=== PATIENT | female | born 1980 | race Caucasian/White ===

== ENCOUNTER 2017-02-16 12:08 | Emergency (ER) | payer OTHER ==
[~2017-02-16] VITALS: Ht 167.6 cm; Wt 72.6 kg
--- NOTE | ~2017-02-16 | CR93 ---
[facility] A Service of [facility] & [facility] RADIOLOGY TEXT RESULTS PATIENT: GAYLE IVEY LOCATION: [facility] : 76 UNIT #: [id number] AGE: [address]: Heather Monetro APRN SEX: F ORDER DR: [id number] [facility] [address] [place], [place] [address] [id number] E MR#: [id number] Acc #: [id number] NAME: GAYLE IVEY. : 1980 SEX: F STUDY DATE/TIME: 02/16/2017 14:01 UNIT: [facility] ROOM: STUDY DESCRIPTION: CR Elbow Min 3 Views Lt Attending Physician: Heather Montero A.P.R.N. Ordering Physician: Ed Marvin Forman M.D. Primary Care Physician: No Primary Care Physician MEDICAL IMAGING REPORT This report is preliminary unless electronic signature is present EXAM Left elbow, 02/16 at 14:01. INDICATIONS Posterior elbow pain after a fall at home today. FINDINGS Four views of the left elbow were obtained. No fracture or malalignment is seen. There is no joint effusion. The soft tissues are unremarkable. IMPRESSION Negative elbow. Dictated by... Gerson Myles Jr., M.D. THIS IS AN ELECTRONICALLY VERIFIED REPORT Gerson Myles Jr., M.D. at 02/17/2017 8:37 AM KOKI/tawny TD: 02/16/2017 17:38 JOB #: [id number] MEDICAL IMAGING REPORT Page 1 of 1 COPY
--- NOTE | ~2017-02-16 | CR58 ---
[facility] A Service [facility] RADIOLOGY TEXT RESULTS PATIENT: GAYLE IVEY LOCATION: [facility] : 76 UNIT #: [id number] AGE: [address]: Heather Montero APRN SEX: F ORDER DR: [id number] [facility] [address] [place], [place] [address] [id number] E MR#: [id number] Acc #: [id number] NAME: GAYLE IVEY. : 1980 SEX: F STUDY DATE/TIME: 02/16/2017 13:44 UNIT: [facility] ROOM: STUDY DESCRIPTION: CR Cervical Spine 2 or 3 Views Attending Physician: Heather Montero A.P.R.N. Ordering Physician: Ed Doctor [id number] [facility] Primary Care Physician: No Primary Care Physician MEDICAL IMAGING REPORT This report is preliminary unless electronic signature is present EXAM Cervical spine, 02/16/17 COMPARISON STUDIES None. HISTORY Fall at home today with neck pain. FINDINGS AP and lateral projections of the cervical spine show satisfactory preservation of the cervical lordosis. The cervical soft tissues are normal. All anterior and posterior elements in the cervical area are anatomically normal without identifiable fracture, dislocation, malignant lytic or sclerotic change, or arthritis. There is no congenital defect apparent. IMPRESSION Normal cervical spine. Dictated by... Gee Motta M.D. THIS IS AN ELECTRONICALLY VERIFIED REPORT Gee Motta M.D. at 02/17/2017 10:45 AM CONNER/lisa TD: 02/16/2017 17:24 JOB #: [id number] [facility] A [facility] RADIOLOGY TEXT RESULTS PATIENT: GAYLE IVEY LOCATION: [facility] : 76 UNIT #: [id number] AGE: [address]: Heather Montero APRN SEX: F ORDER DR: MEDICAL IMAGING REPORT Page 1 of 1 COPY
--- NOTE | ~2017-02-16 | CR141 ---
[facility] A Service of [facility] RADIOLOGY TEXT RESULTS PATIENT: GAYLE IVEY LOCATION: [facility] : 78 UNIT #: [id number] AGE: [address]: Heather Montero APRN SEX: F ORDER DR: [id number] [facility] [address] [place], [place] [address] [id number] E MR#: [id number] Acc #: [id number] NAME: GAYLE IVEY : 1980 SEX: F STUDY DATE/TIME: 02/16/2017 14:00 UNIT: [facility] ROOM: STUDY DESCRIPTION: CR Hand Min 3 Views Lt Attending Physician: Heather Montero A.P.R.N. Ordering Physician: Ed Doctor [id number] [facility] Primary Care Physician: No Primary Care Physician MEDICAL IMAGING REPORT This report is preliminary unless electronic signature is present EXAM Left hand, 02/16/17 HISTORY Left hand pain today after falling. FINDINGS AP, lateral, and oblique projections of the hand show good mineralization with normal carpal, metacarpal, and phalangeal anatomy without indication of fracture, dislocation, or soft tissue radiopaque foreign body. IMPRESSION Normal hand. Dictated by... Gee Motta M.D. THIS IS AN ELECTRONICALLY VERIFIED REPORT Gee Motta M.D. at 02/17/2017 10:46 AM CONNER/lisa TD: 02/16/2017 17:27 JOB #: [id number] MEDICAL IMAGING REPORT Page 1 of 1 COPY
--- NOTE | ~2017-02-16 | CR150 ---
[facility] A Service of [facility] & [facility] RADIOLOGY TEXT RESULTS PATIENT: GAYLE IVEY LOCATION: [facility] : 76 UNIT #: [id number] AGE: [address]: Heather Montero APRN SEX: F ORDER DR: [id number] [facility] [address] [place], [place] [address] [id number] E MR#: [id number] Acc #: [id number] NAME: GAYLE IVEY : 1980 SEX: F STUDY DATE/TIME: 02/16/2017 14:07 UNIT: [facility] ROOM: STUDY DESCRIPTION: CR Hip Min 2 Views Lt Attending Physician: Heather Montero A.P.R.N. Ordering Physician: Ed Marvin Forman M.D. Primary Care Physician: No Primary Care Physician MEDICAL IMAGING REPORT This report is preliminary unless electronic signature is present EXAM Left hip and pelvis, 02/16 at 1407 hours. INDICATIONS Hip pain after fall at home today. FINDINGS AP pelvis was obtained in addition to a frog-leg left hip. No fracture or malalignment is seen. The femoral heads are normal without evidence of osteonecrosis. IMPRESSION Negative pelvis and left hip. Dictated by... Gerson Myles Jr., M.D. THIS IS AN ELECTRONICALLY VERIFIED REPORT Gerson Myles Jr., M.D. at 02/17/2017 8:37 AM KOKI/tawny TD: 02/16/2017 17:41 JOB #: [id number] MEDICAL IMAGING REPORT Page 1 of 1 COPY
--- NOTE | ~2017-02-16 | CR181 ---
[facility] A Service [facility] RADIOLOGY TEXT RESULTS PATIENT: GAYLE IVEY LOCATION: [facility] : 78 UNIT #: [id number] AGE: [address]: Heather Montero APRN SEX: F ORDER DR: [id number] [facility] [address] [place], [place] [address] [id number] E MR#: [id number] Acc #: [id number] NAME: GAYLE IVEY. : 1980 SEX: F STUDY DATE/TIME: 02/16/2017 13:44 UNIT: [facility] ROOM: STUDY DESCRIPTION: CR Lumbar Spine 2 or 3 Views Attending Physician: Heather Montero A.P.R.N. Referring Physician: Wilmer Franklin M.D. Ordering Physician: Rasheed Forman M.D. Primary Care Physician: No Primary Care Physician MEDICAL IMAGING REPORT This report is preliminary unless electronic signature is present EXAM Lumbar spine, 3 view series. INDICATIONS Pain in back after falling at home today. Previous compression fracture. FINDINGS Three views of the lumbar spine were obtained. There is a severe compression of L2. This was present 01/03/2015, and it has progressed but the area of sclerotic and probably a chronic finding. There is mild compression of L1 which is stable. The other vertebral bodies appear normal. IMPRESSION 1. There is about a 60% compression of L2. It was significantly compressed back in 2014, and on today's study, the remaining vertebral body is sclerotic and there is no evidence of an acute fracture. There is no bony spinal stenosis suggested. 2. Old stable mild fracture of L1. Dictated by... Gee Motta M.D. THIS IS AN ELECTRONICALLY VERIFIED REPORT Gee Motta M.D. at 02/17/2017 10:45 AM CONNER/tawny TD: 02/16/2017 17:29 JOB #: [id number] [facility] A Service [facility] RADIOLOGY TEXT RESULTS PATIENT: GAYLE IVEY LOCATION: [facility] : 78 UNIT #: [id number] AGE: [address]: Heather Montero APRN SEX: F ORDER DR: MEDICAL IMAGING REPORT Page 1 of 1 COPY
--- NOTE | ~2017-02-16 | CR229 ---
[facility] A Service of [facility] RADIOLOGY TEXT RESULTS PATIENT: GAYLE IVEY LOCATION: [facility] : 76 UNIT #: [id number] AGE: [address]: Heather Montero APRN SEX: F ORDER DR: [id number] [facility] [address] [place], [place] [address] [id number] E MR#: [id number] Acc #: [id number] NAME: GAYLE IVEY : 1980 SEX: F STUDY DATE/TIME: 02/16/2017 13:57 UNIT: [facility] ROOM: STUDY DESCRIPTION: CR Shoulder Min 2 View Lt Attending Physician: Heather Montero A.P.R.N. Ordering Physician: Ed Doctor [id number] [facility] Primary Care Physician: No Primary Care Physician MEDICAL IMAGING REPORT This report is preliminary unless electronic signature is present EXAM Left shoulder, 02/16/17 HISTORY Left shoulder pain after fall at home today. FINDINGS AP view with internal and external rotation of the shoulder girdle shows satisfactory relationship of the humeral head and glenoid fossa. The joint space is normal. There is no identifiable fracture or dislocation or bony destructive process about the shoulder girdle anatomy. The acromioclavicular joint is normal. There is no radiopaque foreign body in the region. IMPRESSION Normal shoulder. Dictated by... Gee Motta M.D. THIS IS AN ELECTRONICALLY VERIFIED REPORT Gee Motta M.D. at 02/17/2017 10:46 AM CONNER/lisa TD: 02/16/2017 17:26 JOB #: [id number] MEDICAL IMAGING REPORT Page 1 of 1 COPY
--- NOTE | ~2017-02-16 | CR63 ---
[facility] A Service [facility] RADIOLOGY TEXT RESULTS PATIENT: GAYLE IVEY LOCATION: [facility] : 76 UNIT #: [id number] AGE: [address]: Heather Montero APRN SEX: F ORDER DR: [id number] [facility] [address] [place], [place] [address] [id number] E MR#: [id number] Acc #: [id number] NAME: GAYLE IVEY. : 1980 SEX: F STUDY DATE/TIME: 02/16/2017 13:43 UNIT: [facility] ROOM: STUDY DESCRIPTION: CR Chest 2 View Attending Physician: Heather Montero A.P.R.N. Ordering Physician: Ed Doctor [id number] [facility] Primary Care Physician: No Primary Care Physician MEDICAL IMAGING REPORT This report is preliminary unless electronic signature is present EXAM PA and lateral chest, 02/16/17 HISTORY Fell at home with anterior chest pain. This happened today. COMPARISON STUDIES 01/05/16. FINDINGS PA and lateral examination of the chest upright shows a good expansion of the parenchyma with a normal distribution of the pulmonary vascularity. There is no indication of congestion, effusion, infiltrate, tumor, or nodular density. The pleural reflections and diaphragmatic contours are normal. The cardiac silhouette and mediastinal anatomy is within normal limits. IMPRESSION Normal chest. Dictated by... Gee Motta M.D. THIS IS AN ELECTRONICALLY VERIFIED REPORT Gee Motta M.D. at 02/17/2017 10:45 AM CONNER/lisa TD: 02/16/2017 17:23 JOB #: [id number] [facility] A Service [facility] RADIOLOGY TEXT RESULTS PATIENT: GAYEL IVEY LOCATION: [facility] : 76 UNIT #: [id number] AGE: [address]: Heather Montero APRN SEX: F ORDER DR: MEDICAL IMAGING REPORT Page 1 of 1 COPY
[~2017-02-16 12:08] MED LIST: ALBUTEROL17 GM INH; NECON; PROZAC; VICODIN ES 7.51 EAC1 PO
[2017-02-16 14:48] LABS: URINE SOURCE CLEAN CATCH
[2017-02-16 15:07] LABS: URINE APPEARANCE CLEAR; URINE BILIRUBIN NEG (NEG); URINE BLOOD NEG (NEG); URINE COLOR ORANGE; URINE GLUCOSE NEG (NEG); URINE KETONE TRACE (NEG); URINE LEUKOCYTE ESTERASE TRACE (NEG); URINE NITRATE NEG (NEG); URINE PH 5.5 (5-8); URINE PROTEIN TRACE (NEG); URINE SPECIFIC GRAVITY 1.026 (1.003-1.035)
[2017-02-16 15:10] LABS: CULTURE INDICATED? YES; URINE BACTERIA AUWI 1+ (NEGATIVE); URINE SQUAMOUS EPITHELIAL CELL FEW /[HPF]
[2017-02-19 16:56] LABS: CHLAMYDIA TRACH Not Detected (Not Detected); N GONOR Not Detected (Not Detected)
== END 2017-02-16 16:16 | disposition home or self-care (01) ==
LOC: CFTX 12:08 → CED 12:08 → CFTX 16:10
PROVIDERS: Nurse Practitioner
DX: S13.4XXA Sprain of ligaments of cervical spine, initial encounter (principal); S30.0XXA Contusion of lower back and pelvis, initial encounter; S60.222A Contusion of left hand, initial encounter; S40.012A Contusion of left shoulder, initial encounter; F41.9 Anxiety disorder, unspecified; F31.9 Bipolar disorder, unspecified; F17.210 Nicotine dependence, cigarettes, uncomplicated; Z88.1 Allergy status to other antibiotic agents; Z88.6 Allergy status to analgesic agent; Z88.8 Allergy status to other drugs, medicaments and biological substances; W11.XXXA Fall on and from ladder, initial encounter; Y92.009 Unspecified place in unspecified non-institutional (private) residence as the place of occurrence of the external cause
CPT/HCPCS: 71020; 72040; 72100; 73030; 73080; 73130; 73502; 81003; 84703; 87086; 87491; 87591; 87808; 87905; 99284